=== PATIENT | female | born 1995 | race Caucasian/White ===

== ENCOUNTER → 2024-09-06 | Outpatient (CLI) | payer BC, SELFPAY ==
[2024-09-10 22:06] LABS: Chlamydia By Nucleic Acid AMP Negative (Negative); Gonococcus By Nucleic Acid AMP Negative (Negative)
[2024-09-11 12:08] LABS: HPV APTIMA, High Risk Negative (Negative)
== END | disposition home or self-care (01) ==
LOC: LABSPEC 14:20
PROVIDERS: Referring Provider Advanced Practice Midwife; Visit Provider Advanced Practice Midwife
DX: O09.90 Supervision of high risk pregnancy, unspecified, unspecified trimester (principal); Z12.4 Encounter for screening for malignant neoplasm of cervix; Z3A.00 Weeks of gestation of pregnancy not specified
CPT/HCPCS: 87086; 87088; 87491; 87591; 87624; 88175; G0145

== ENCOUNTER → 2024-09-12 | Outpatient (CLI) | payer BC, SELFPAY | END | disposition home or self-care (01) | LOC: LABSPEC 11:01 | PROVIDERS: Referring Provider Nurse Practitioner Women's Health; Visit Provider Nurse Practitioner Women's Health | DX: R39.89 Other symptoms and signs involving the genitourinary system (principal) | CPT/HCPCS: 87086 ==

== ENCOUNTER → 2024-09-28 | Outpatient (CLI) | payer BC, SELFPAY ==
[2024-09-28 16:28] LABS: Absolute Lymphocyte Count 2.11 X10^3/uL (0.83-4.51); Absolute Neutrophil Count 6.3 X10^3/uL (2.0-7.7); Basophil# 0.06 X10^3/uL; Basophil% 0.6 % (0-1); Eosinophil# 0.45 X10^3/uL; Eosinophils% 4.7 % (0-5); Hemoglobin 11.6 g/dL (12.0-15.0); Lymphocyte # 2.11 X10^3/ul (0.83-4.51); Lymphocyte % 21.9 % (19-41); Mean Corp Hgb Conc 34.1 g/dL (32-36); Mean Corpuscular Hgb 30.9 pg (27.0-32.0); Mean Corpuscular Volume 90.4 fL (81-99); Mean Platelet Vol. 9.3 fl (6.2-12.0); Monocyte# 0.64 X10^3/uL; Monocyte% 6.7 % (0-10); NRBC Flagged by Analyzer 0 % (0-5); Neutrophil # 6.33 X10^3/uL (2.7-7.7); Neutrophil % 65.8 % (47-70); Platelet Count 282 K/mm3 (150-450); RBC Distribution Width CV 12.3 % (11.6-14.6); RBC Distribution Width SD 40.3 fl (35.1-43.9); Red Blood Count 3.76 M/mm3 (4.2-5.4); White Blood Count 9.6 K/mm3 (4.4-11.0)
[2024-09-28 17:12] LABS: HIV Nonreactive (Nonreactive); Hepatitis B Surface Antigen Nonreactive (Nonreactive); Hepatitis C Antibody Nonreactive (Nonreactive); Rubella IgG REAC (Nonreactive); Syphilis Antibodies Nonreactive (Nonreactive)
== END | disposition home or self-care (01) ==
PROVIDERS: Advanced Practice Midwife; Referring Provider Obstetrics & Gynecology; Visit Provider Obstetrics & Gynecology
DX: O09.90 Supervision of high risk pregnancy, unspecified, unspecified trimester (principal); Z3A.00 Weeks of gestation of pregnancy not specified
CPT/HCPCS: 36415; 85025; 86703; 86762; 86780; 86803; 86850; 86900; 86901; 87340

== ENCOUNTER → 2024-10-02 | Outpatient (CLI) | payer BC, SELFPAY | END | disposition home or self-care (01) | LOC: BWCLAB 08:13 | PROVIDERS: Referring Provider Advanced Practice Midwife; Visit Provider Advanced Practice Midwife | DX: Z34.81 Encounter for supervision of other normal pregnancy, first trimester (principal) | CPT/HCPCS: 36415 ==

== ENCOUNTER → 2025-01-15 | Outpatient (CLI) | payer BC, SELFPAY ==
[2025-01-15 09:27] LABS: Hematocrit 28.6 % (37-47); Hemoglobin 9.7 g/dL (12.0-15.0); Immature Granulocytes Count 0.050 X10^3/uL (0.0-0.0); Mean Corp Hgb Conc 33.9 g/dL (32-36); Mean Corpuscular Volume 89.4 fL (81-99); Mean Platelet Vol. 9.0 fl (6.2-12.0); NRBC Flagged by Analyzer 0 % (0-5); Platelet Count 259 K/mm3 (150-450); RBC Distribution Width CV 13.0 % (11.6-14.6); RBC Distribution Width SD 42.1 fl (35.1-43.9); Red Blood Count 3.20 M/mm3 (4.2-5.4); White Blood Count 9.4 K/mm3 (4.4-11.0)
[2025-01-15 10:11] LABS: Glucose Challenge Gest 1H 50g 102 mg/dL (70-140); HIV Nonreactive (Nonreactive); Syphilis Antibodies Nonreactive (Nonreactive)
== END | disposition home or self-care (01) ==
LOC: BWCLAB 08:31
PROVIDERS: Referring Provider Nurse Practitioner Women's Health; Visit Provider Nurse Practitioner Women's Health
DX: O09.91 Supervision of high risk pregnancy, unspecified, first trimester (principal); Z3A.00 Weeks of gestation of pregnancy not specified; Z13.1 Encounter for screening for diabetes mellitus
CPT/HCPCS: 36415; 82950; 85025; 86703; 86780

== ENCOUNTER → 2025-03-18 | Outpatient (CLI) | payer BC, SELFPAY ==
--- NOTE | 2025-03-18 12:53 | US_ITS ---
PROCEDURE: OB LIMITED WITH BIOMETRICS 03/18/2025 REASON FOR EXAM: HISTORY OF IUGR TECHNIQUE: Procedure Code: USOBGROWTH Modality: US Procedure: OB LIMITED WITH BIOMETRICS COMPARISON: None FINDINGS LMP: July 09, 2024. Number: 1 Position: Vertex Placental Position: Anterior and not low-lying Placental Abnormalities: No evidence of previa. DIMENSIONS: Biparietal Diameter: 8.8 cm: 35 weeks and 3 days: 44 percentile/ Head Circumference: 32 cm: 36 weeks and 0 days: 20 percentile/ Abdominal Circumference: 32.9 cm: 36 weeks and 6 days: 81 percentile/ Femur Length: 6.8 cm: 34 weeks and 6 days: 18 percentile/ ESTIMATED WEIGHT: 2868 g plus/-430 g ESTIMATED WEIGHT PERCENTILE (24+ weeks): 55.9 ESTIMATED GESTATIONAL AGE: Baseline: 36 weeks and 0 days By Ultrasound: 36 weeks and 1 day ESTIMATED DATE OF DELIVERY: Baseline: April 15, 2025 By Ultrasound: April 14, 2025 BIOPHYSICAL ASSESSMENT: Amniotic Fluid Volume: 2.8 cm Amniotic Fluid Index: 7.5 cm (8-24 cm normal range) Cardiac Motion: 157 beats per minute (average) Trunk and Limb Motion: Present. US/OB Limited With Biometrics IMPRESSION: Single live intrauterine gestation with a mean gestational age of 36 weeks and 1 day. Reading Location: [id number]
== END | disposition home or self-care (01) ==
LOC: US 12:51
PROVIDERS: PCP Family Medicine; Referring Provider Obstetrics & Gynecology; Visit Provider Obstetrics & Gynecology
DX: O99.013 Anemia complicating pregnancy, third trimester (principal); Z87.59 Personal history of other complications of pregnancy, childbirth and the puerperium; O34.219 Maternal care for unspecified type scar from previous cesarean delivery; O09.93 Supervision of high risk pregnancy, unspecified, third trimester; Z3A.00 Weeks of gestation of pregnancy not specified
CPT/HCPCS: 76816

== ENCOUNTER → 2025-03-21 | Outpatient (CLI) | payer BC, SELFPAY | END | disposition home or self-care (01) | LOC: LABSPEC 11:32 | PROVIDERS: PCP Family Medicine; Visit Provider Obstetrics & Gynecology | DX: O09.93 Supervision of high risk pregnancy, unspecified, third trimester (principal); Z3A.36 36 weeks gestation of pregnancy | CPT/HCPCS: 87081 ==

== ENCOUNTER → 2025-04-02 | Outpatient (CLI) | payer BC, SELFPAY ==
--- NOTE | 2025-04-02 10:03 | US_ITS ---
PROCEDURE: OB LIMITED (NO BIOMETRICS) 04/02/2025 REASON FOR EXAM: MARGOTH CHECK TECHNIQUE: Procedure Code: USOBL Modality: US Procedure: OB LIMITED (NO BIOMETRICS) FINDINGS Cephalic position with cardiac activity of 147 bpm. Maximum vertical pocket of 4.6 cm and MARGOTH of 7.7 cm. Placenta is not low lying with grade 3 US/OB Limited (No Biometrics) IMPRESSION: MARGOTH of 7.7 cm. Reading Location: [id number]
== END | disposition home or self-care (01) ==
LOC: US 10:03
PROVIDERS: PCP Family Medicine; Referring Provider Advanced Practice Midwife; Visit Provider Advanced Practice Midwife
DX: O28.8 Other abnormal findings on antenatal screening of mother (principal); Z3A.00 Weeks of gestation of pregnancy not specified
CPT/HCPCS: 76815

== ENCOUNTER 2025-04-08 11:43 | Inpatient (IN) | payer BC, SELFPAY ==
[2025-04-08] VITALS (14 sets, daily range): BP systolic 98–137; BP diastolic 56–81; PULSE 88–115; RESP 16–18; TEMP 36.4–37.3; O2SAT 95–98; BMI 33.8
[2025-04-08 12:39] LABS: Hematocrit 28.9 % (37-47); Hemoglobin 10.1 g/dL (12.0-15.0); Immature Granulocytes Count 0.070 X10^3/uL (0.0-0.0); Mean Corp Hgb Conc 34.9 g/dL (32-36); Mean Corpuscular Volume 88.7 fL (81-99); Mean Platelet Vol. 9.3 fl (6.2-12.0); NRBC Flagged by Analyzer 0 % (0-5); Platelet Count 237 K/mm3 (150-450); RBC Distribution Width CV 13.7 % (11.6-14.6); RBC Distribution Width SD 44.5 fl (35.1-43.9); Red Blood Count 3.26 M/mm3 (4.2-5.4); White Blood Count 10.1 K/mm3 (4.4-11.0)
[2025-04-08 13:15] LABS: Creatinine, Urine (random) 30.50 mg/dL (28.00-217.00); Protein, Urine (Random) < 6.0 mg/dL (0.0-12.0); Protein:Creat Ratio UNABLE TO CALCULATE mg/g CRE (0-200)
[2025-04-08 13:29] LABS: AST(SGOT) 18 U/L (<=31); Alanine Aminotransfer ALT/SGPT 9 U/L (<=34); Estimated Creatinine Clearance 162.35 ml/min (50-250); Syphilis Antibodies Nonreactive (Nonreactive); Uric Acid 4.6 mg/dL (2.6-6.0)
[2025-04-08] MEDS: Lactated Ringers 1,000 ML 999 ML IV (14:48)
[2025-04-08] MEDS: Lactated Ringers 1,000 ML 150 ML IV (15:52)
[2025-04-08] MEDS: Cefazolin 1 GM/5 ML Vial 2 GM IV (16:41)
[2025-04-08] MEDS: 0.9% Normal Saline (1000mL) 350 ML IV (17:29)
--- NOTE | 2025-04-08 17:38 | HP.PCM_ITS ---
History and Physical Date of Admission: 04/08/25 ital Signs 01/28/2509:53 04/02/2509:35 04/08/2510:38 04/08/2510:41 Height 5 ft 5 ft 5 ft Weight: 173 lb 1 oz BMI 33.7 BP 143/94 H 138/92 H Intake Visit Reasons: 39wk ob Neonatal Icu Coordinator Required: No Is patient in pain?: No Allergies No Known Allergies Allergy (Verified 04/08/25 12:04) Medications ?Medication ?Instructions ?Recorded ?Confirmed ?Type citalopram 20 mg tablet 20 mg PO QDAY pregn 08/24/24 04/08/25 Hi story docosahexaenoic acid 200 mg 200 mg PO DAILY 08/24/2404/08 History capsule ( DHA) ferrous sulfate 325 mg (65 mg 325 mg PO DAILY anemia 04/08/25 04/08/25 History iron) tablet (Feosol) Last Menstrual Period: 07/09/24 Zika: Zika virus screening: Negative : No PFSH PFSH Medical History (Updated 04/08/25 @ 15:[address] Rocio Contreras MD) Anxiety History of prior with IUGR Surgical History S/P tonsillectomy H/O section Family History Grandmother Breast cancer, Onset Age: 50 Social History adopted: No household members: spouse and children number of children: 1 current occupational status: employed current occupation: [employer] current occupational exposures/hazards: No pets and animals: Yes (Not managing litterbox) pets and animals: cat(s) and dog(s) history of recent travel: No sexually active: Yes Smoking Status: Never smoker second hand exposure: No alcohol intake: current alcohol intake frequency: holidays/special occasions only details: Not while substance use type: does not use well-balanced diet: daily or most days caffeine: Yes Type: coffee eating out: 1-3 times/week during the past year weight has: remained stable what type of physical activity do you participate in: walking frequency: 3-4 times per week duration: 15-30 minutes/day pako/mormon: None seatbelt use: always do you feel safe at home: Yes additional social history: : Chandra IntraStage History 2 Elective abortions Hx Para 1 Spontaneous abortions Hx # Term Pregnancies 1 Ectopic pregnancies Hx # Pregnancies Multiple births # of living children 1 Past Pregnancies Del. Date Name GA/Weeks Outcome Route Bth Weight Infant Gen Labor Lgth Anesthesia Del Locatn Provider FOB 08/28/21 Ellen 39 live - full term 5lbs 12oz Female epidural [facility] in [facility] Delivery Date: 08/28/21 Last Updated by: Angelica Esposito, RN Measuring small most of , brain cyst - resolved, csec d/t decals from knotted cord HPI 39wk ob Details: DAVID BUENROSTRO is a 29 year old who presents for routine OB visit. she has elevated bps today and she is having lower abdominal pain intermittently. OB Visit NASRIN Calculator Estimated Delivery Date Method Current WG Current Estimate 04/15/25 LMP (Certain) 39w 0d Expected Delivery Route/Plan TOLAC by 40-41 patient counseled regarding risks/benefits of trial of labor versus repeat . ACOG/uptodate education given to patient. [] % likelihood of success per calculator TOLAC consent form signed: [] Specific Issue/Plans Covid status: [] Flu vaccine: declined Tdap vaccine: given Rhogam: NA LARC form signed: yes movement and labor precautions reviewed. Problem list reviewed and updated with the most current plan of care details and appropriate orders placed. Relevant counseling for the gestational age provided. Continue routine care and follow up unless otherwise noted in visit notes/problem list details Initial Weight: 147 lb Date -?-?-?-?-?-?-?-?-?-?-?-?- EGA Weight BP Urine Prot -?-?-?-?-?-?-?-?-?-?-?-?- Glucose FHR FuHt Pres Dilation -?-?-?-?-?-?-?-?-?-?-?-?- Effaced St Visit Note 09/06/24-?-?-?-?-?-?-?-?-?-?-?-?- 8w 3d 147 lb 4 oz(+4 oz) 129/85 -?-?-?-?-?-?-?-?-?-?-?-?- 169 -?-?-?-?-?-?-?-?-?-?-?-?- KW- CRL cons with dates. Accepts NIPT. had c/s for decels. 09/12/24-?-?-?-?-?-?-?-?-?-?-?-?- 9w 2d 146 lb 2 oz(-14 oz) 134/89 Negative -?-?-?-?-?-?-?-?-?-?-?-?- Negative 171 -?-?-?-?-?-?-?-?-?-?-?-?- -work in for dysuria, bladder pain. Hx UTI. Br US confirm live IUP. No bleeding. UA negative. Will send culture. Consult JV and macrobid and pyridium sent due to significant sx. 09/28/24-?-?-?-?-?-?-?-?-?-?-?-?- 11w 4d 148 lb(+16 oz) 116/76 Negative -?-?-?-?-?-?-?-?-?-?-?-?- Negative 150 -?-?-?-?-?-?-?-?-?-?-?-?- SM- no vb crmaping noStreamSpec labs today 10/25/24-?-?-?-?-?-?-?--?-?-?-?-?- 15w 3d 150 lb 8 oz(+3 lb 8 oz) 127/84 Negative -?-?-?-?-?-?-?-?-?-?-?-?- Negative 145 -?-?-?-?-?-?-?-?-?-?-?-?- Sm- no vb lof cramping 11/21/24-?-?-?-?-?-?-?-?-?-?-?-?- 19w 2d 152 lb 8 oz(+5 lb 8 oz) 118/79 Negative -?-?-?-?-?-?-?-?-?-?-?-?- Negative 150 -?-?-?-?-?-?-?-?-?-?-?-?- JV_ CRUSHER FOREMAN explained on ultrasound. no other complaints today. feeling lots of movement. 12/17/24-?-?-?-?-?-?-?-?-?-?-?-?- 23w 0d 156 lb 7 oz(+9 lb 7 oz) 119/79 Negative -?-?-?-?-?-?-?-?-?-?-?-?- Negative 155 23 -?-?-?-?-?-?-?-?-?-?-?-?- KW- no vb/lof/ctx. good fm. glucose discussed. 01/15/25-?-?-?-?-?-?-?-?-?-?-?-?- 27w 1d 161 lb 4 oz(+14 lb 4 oz) 114/70 Negative -?-?-?-?-?-?-?-?-?-?-?-?- Negative 152 27 -?-?-?-?-?-?-?-?-?-?-?-?- MH-No VB, lof. Good FM. 28 wk labs pending. [facility] 01/28/25-?-?-?-?-?-?-?-?-?-?-?-?- 29w 0d 163 lb 7 oz(+16 lb 7 oz) 116/80 Negative -?-?-?-?-?-?-?-?-?-?-?-?- Negative 141 29 -?-?-?-?-?-?-?-?-?-?-?-?- MH-No VB, LOF. Good FM. tdap 02/12/25-?-?-?-?-?-?-?-?-?-?-?-?- 31w 1d 166 lb 6 oz(+19 lb 6 oz) 123/78 Negative -?-?-?-?-?-?-?-?-?-?-?-?- Negative 145 32 -?-?-?-?-?-?-?-?-?-?-?-?- Sm- n ovb lof good fm n oregular ctx 02/27/25-?-?-?-?-?-?-?-?-?-?-?-?- 33w 2d 169 lb 6 oz(+22 lb 6 oz) 127/88 Negative -?-?-?-?-?-?-?-?-?-?-?-?- Negative 134 34 -?-?-?-?-?-?-?-?-?-?-?-?- JV- planning 36 week growth scan for h/o IUGR. sent home with tolac consent. no lof, vaginal bleeding, or dec fm. 03/15/25-?--?-?-?-?-?-?-?-?-?-?-?- 35w 4d 169 lb 5 oz(+22 lb 5 oz) 132/80 Negative -?-?-?-?-?-?-?-?-?-?-?-?- Negative 135 35 -?-?-?-?--?-?-?-?-?-?-?-?- SM- no vb lof good fm no regular ctx some headaches normal bp no visual changes 03/21/25-?-?-?-?-?-?-?-?-?-?-?-?- 36w 3d 170 lb 3 oz(+23 lb 3 oz) 136/88 Negative -?-?-?-?-?-?-?-?-?-?-?-?- Negative 145 36 Cephalic 1-?-?-?-?-?-?-?-?-?- ?-?-?- 30 -3 JV- c/o vomiting at night . recommend pepcid. GBS collected ultrasound shows good growth but borderline low fluid. will recheck next week. 03/25/25-?-?-?-?-?-?-?-?-?-?-?-?- 37w 0d 171 lb 8 oz(+24 lb 8 oz) 126/88 Negative -?-?-?-?-?-?-?-?-?-?-?-?- Negative 144 37 Cephalic 1-?-?-?-?-?-?-?-?-?- ?-?-?- 30 -3 KV- Good FM. No regular c tx, LOF, or VB. MARGOTH today 11.1cm. 04/02/25-?-?-?-?-?-?-?-?-?-?-?-?- 38w 1d 173 lb 7 oz(+26 lb 7 oz) 132/85 Negative -?-?-?-?-?-?-?-?-?-?-?-?- Negative 135 36 3-?-?-?-?-?-?-?-?-?- ?-?-?- 30 -3 KW- no vb/lof/ctx. good tae blancas has formal US today after appt. 04/08/25-?-?-?-?-?-?-?-?-?-?-?-?- 39w 0d 173 lb 1 oz(+26 lb 1 oz) 143/98772/92 Ne gative -?-?-?-?-?-?-?-?-?-?-?-?- Negative -?-?-?-?-?-?-?-?-?-?-?-?- ROS Const Reports system reviewed and no additional complaints, except as documented Card Reports system reviewed and no additional complaints, except as documented Resp Reports system reviewed and no additional complaints, except as documented GI Reports system reviewed and no additional complaints, except as documented, Reports nausea Reports system reviewed and no additional complaints, except as documented Musc Reports system reviewed and no additional complaints, except as documented all other systems reviewed and negative Exam Const General: cooperative, healthy appearing, comfortable [facility] Head: normal to inspection Nose: external nose normal Face and sinus: normal facial exam Neck Neck: normal visual inspection, full ROM, no lymphadenopathy Thyroid: thyroid normal Chest Chest palpation & inspection: normal inspection of the chest Resp Effort & Inspection: normal respiratory effort GI Inspection: normal to inspection Palpation: soft, other (gravid uterus) Other: vertex and appropriate size for gestational age Extrem General: pedal edema ACOG First Trimester First Trimester: Desire for , Alcohol, Tobacco Cessation, Illicit/Recreational Drug/Substance Use, Intimate Partner Violence, Barriers to care, Anticipated Course of Care, Use of Any medications, Sexual activity, Exercise, Dental Care, Sauna/Hot tub use, Seat Belt use, Childbirth c lasses/Hospital facilities, Travel, Indications for Ultrasound and Screening for Aneuploidy; Discussed Unstable Housing, Discussed Communication Barriers, Discussed Environmental/Work Hazards, Discussed Toxoplasmosis Precations and Discussed Second Trimester Second Trimester: Signs and Symptoms of Labor, Selecting a care provider, Reproductive Life Planning & Contreception, Care Planning, Depression/Anxiety and Intimate Partner Violence; Discussed Tobacco Cessation Third Trimester Third Trimester: Pain Management Plans, Labor support person(s), Immediate Larc, Signs and Symptoms of Preeclampsia, Feeding No , [place] Education and Family Medical Leave or Disability Forms Results POC Urinalysis 2 Dip (Clinic) Office Urine Glucose Negative Last Edit by Cristy Rodriguez on 04/08/25 10:57 Office Urine Protein Negative Last Edit by Cristy Rodriguez on 04/08/25 10:57 Coding Level of Care Code OB Routine Diagnoses Amniotic fluid index borderline low O28.8 Anemia affecting in third trimester O99.013 Trimester: third trimester History of prior with IUGR Z87.59 History of delivery, currently O34.219 Supervision of high risk in third trimester O09.93 Trimester: third trimester 39 weeks gestation of Z3A.39 Weeks of gestation: 39 weeks Anxiety F41.9 Abdominal pain during in third trimester O26.893; R10.9 Assessment and Plan Assessment and Plan (1) Amniotic fluid index borderline low: Status: Acute Comment: 7.7 on 04/02. repeat margoth next week (2) Anemia affecting : Status: Acute Qualifiers: Trimester: third trimester Qualified Code(s): O99.013 - Anemia complicating , third trimester Comment: anemia, add Fe, recheck CBC and Fe studies in 4 weeks (3) History of prior with IUGR : Status: Acute Comment: growth US 36 weeks (4) History of delivery, currently : Status: Acute Comment: x1, plan on by 40-41 weeks. C/S 04/22 SM. (5) Supervision of high-risk : Status: Acute Qualifiers: Trimester: third trimester Qualified Code(s): O09.93 - Supervision of high risk , unspecified, third trimester Comment: PRR, , NASRIN 04/15/25, girl Rita PC: Ellen, : Chandra (6) : Status: Acute Qualifiers: Weeks of gestation: 39 weeks Qualified Code(s): Z3A.39 - 39 weeks gestation of Comment: neg GBS. Discussed genetic/carrier testing-NIPT low risk, gender female. afp declined (7) Anxiety: Status: Acute Comment: On citalopram (8) Abdominal pain during in third trimester: Status: Acute Comment: recommend proceeding with repeat Orders: Orders POC Urinalysis 2 Dip (Clinic) Today After discussing the patient's diagnosis and treatment plan options, patient wishes to proceed with surgical management. I have discussed with the patient the risks, benefits, and alternatives of the procedure which include but are not limited to risks of anesthesia, bleeding, infection, possible damage to bowel, bladder, or surrounding vasculature which could lead to additional surgery to evaluate any complications. Patient agrees to procedure and wishes to proceed. ACOG/uptodate references given for additional information regarding procedure. 04/08/25 1207 <Electronically signed by Rocio Contreras MD>
--- NOTE | 2025-04-08 17:41 | OP.PCM_ITS ---
Assessment & Plan (1) Abdominal pain during in third trimester: COMMENT: recommend proceeding with repeat (2) Amniotic fluid index borderline low: COMMENT: 7.7 on 04/02. repeat gilles next week (3) Anemia affecting : QUALIFIERS: Trimester: third trimester Qualified Code(s): O99.013 - Anemia complicating , third trimester COMMENT: anemia, add Fe, recheck CBC and Fe studies in 4 weeks (4) History of prior with IUGR : COMMENT: growth US 36 weeks (5) History of delivery, currently : COMMENT: x1, plan on by 40-41 weeks. C/S 04/22 SM. (6) Supervision of high-risk : QUALIFIERS: Trimester: third trimester Qualified Code(s): O09.93 - Supervision of high risk , unspecified, third trimester COMMENT: PRR, , NASRIN 04/15/25, girl Rita PC: Ellen, : Chandra (7) : QUALIFIERS: Weeks of gestation: 39 weeks Qualified Code(s): Z3A.39 - 39 weeks gestation of COMMENT: neg GBS. Discussed genetic/carrier testing-NIPT low risk, gender female. afp declined (8) Anxiety: COMMENT: On citalopram (9) delivery delivered: Maternal Data Information NASRIN Calculator Estimated Delivery Date Method Current WG Current Estimate 04/15/25 LMP (Certain) 39w 0d Final NASRIN Source: LMP Operative Report (OB) Procedure Details Date of Procedure: 04/08/25 Procedure Start Time: 17:01 Pre-Operative Diagnosis: Repeat Elective Post-Operative Diagnosis: Same as Pre-operative diagnosis Classification: Scheduled Type of Anesthesia: Spinal Special Medications: none Antibiotic Given: Ancef 2 grams IV x1 Drain: Pyle to straight drain Estimated Blood Loss: 600 Fluids Replaced: crystalloid Findings Description of surgery: Spinal anesthesia was placed without difficulty. Pyle catheter was placed. The patient was placed in the dorsal supine position with leftward tilt. Patient was prepped and draped in the normal sterile fashion. Pfannenstiel skin incision was made with the scalpel and carried through to the underlying layer of fascia with the scalpel. Fascia was nicked in the midline and the incision extended laterally. The rectus bellies were dissected off superiorly and inferiorly with out complication both sharply and bluntly. The peritoneum was entered digitally. The incision was stretched and a low transverse uterine incision was made with the scalpel. The infant's head was delivered atraumatically followed by the anterior and posterior shoulders without complication the rest of the infant delivered. The cord was clamped and cut and the infant was handed off to awaiting nurse. The placenta was delivered spontaneously immediately following and was noted to be intact and have a three- vessel cord. The uterus was exteriorized cleared of all clots and debris, and the incision was closed in a double layer closure using #1 Monocryl. The ovaries and fallopian tubes were noted to be within normal limits. The uterus was returned to the maternal abdomen and gutters were cleared of all clots and debris. The peritoneum was closed with 3-0 Monocryl in a running fashion. Gloves were changed prior to fascial closure. Fascia was closed with 0 PDS in a running fashion. Subcutaneous tissue was copiously irrigated and the skin was closed with 3-0 Monocryl in a subcuticular fashion. Mepilex dressing was applied without complication. Patient was taken to recovery in stable condition. It was discussed with the patient that based on the clinical information obtained during this encounter, combined with her history, at this time I would recommend vaginal or cesareans for future deliveries if further pregnancies are desired. Surgical findings: vertex infant minimal scar tissue Presentation: Vertex Amniotic Membrane Rupture Type: Artificial Amniotic Fluid Description: Clear Specimen collected: Yes Description of specimen(s) removed: placenta and baby Cord Vessel Description: 3 Vessels Delayed Cord Clamping: Yes Cable Stretcher And Tester digital learning platforms manager: Yes Bus Transportation Manager: Polina Jeter Tasks completed by hearing aid assistant: Opening & closing, Retracting and Other (assisting in delivery of the infant) Additional janitorial assistant?: No Complications Complications: No Admit VTE Documentation VTE Present on Admission: No VTE Mechan Device Prophylaxis: SCD's Procedures Urinary/Genital [id number]: [id number] Delivery [facility]
--- NOTE | 2025-04-08 17:42 | PCM.POST.ANE ---
Anesthesia: Postop Eval I Current Vital Signs Temperature: 98 F Pulse Rate: 99 Blood Pressure: 133/58 Respiratory Rate: 16 Pulse Ox: 97 Oxygen Delivery Method: Room Air Assessment Airway patent: Yes Spontaneous unlabored respirations: Yes Mental status: Awake and Calm nausea: No Vomiting: No Anesthesia Complication: No Fluid Hydration Crystalloid volume administer (ml): 950 Total IV fluid infused: 950 Progress Note Anesthesia document: Postop Eval 1 completed: Yes
--- NOTE | 2025-04-08 17:43 | DCINST_ITS ---
Discharge Instructions DC O2, CPAP, BIPAP needs Home O2 Discharge instructions: No Dressing / Incision Discharge Activity: May Not Drive (for 2 weeks or while taking narcotic pain medications.), May Shower and May Take a Tub Bath (in 7 days) May shower in (days): 0 May resume sexual activity in: 4-6 weeks Weight Bearing Status: Full weight bearing Lifting Restrictions: 20 pounds Dressing / Incision Call your doctor if your incision/area has: Continuous Slow Oozing, Sudden Increased Bleeding, Increased Pain/ Swelling, Increased Redness and Foul Smelling Discharge Call your doctor if you observe: Fever of 101 or Higher and Using more than 1 pad per hour (for 2 hours) Suture Line Care: Avoid Pulling/Pushing and Avoid Pinching/Bending Cleanse incision/area with: Soap & Water and Keep Dressing Clean & Dry Follow Up Care Please Follow Up With: Rocio Contreras MD When: Call [phone] to make an appointment for an incision check in 1-2 weeks. Test Results: Test results from this visit will be discussed in further detail at your follow- up appointment, if applicable. Discharge Plan Admission Admit Date/Time: 04/08/25 11:43 Attending Provider: Rocio Cnotreras Primary Care Provider: Shantal Corado Discharge Orders/Prescriptions Prescriptions: No Action citalopram 20 mg tablet 20 mg PO QDAY DHA 200 mg capsule 200 mg PO DAILY ferrous sulfate [Feosol] 325 mg (65 mg iron) tablet 325 mg PO DAILY Referrals / Follow Up: Shantal Corado MD [Primary Care Provider, Medical]
--- NOTE | 2025-04-08 17:47 | POSTOPAN2_ITS ---
Anesthesia Postop Eval I Sum Postop Eval Completion status Anesthesia document: Postop Eval 1 completed: Yes Anesthesia Postop Eval I Summary Anesthesia Postop Eval I Summary: Anesthesia Postop Eval I: Assessment Summary Airway patent Yes 04/08/25 17:43 SUPERVISOR COMPUTER OPERATIONS.CSIR Spontaneous unlabored Yes 04/08/25 17:43 SUPERVISOR COMPUTER OPERATIONS.CSIR respirations Mental status Awake,Calm 04/08/25 17:43 SUPERVISOR COMPUTER OPERATIONS.CSIR nausea No 04/08/25 17:43 SUPERVISOR COMPUTER OPERATIONS.CSIR Vomiting No 04/08/25 17:43 SUPERVISOR COMPUTER OPERATIONS.CSIR Anesthesia Postop Eval I: Fluid Summary Crystalloid volume administer 950 04/08/25 17:43 SUPERVISOR COMPUTER OPERATIONS.CSIR (ml) Colloids volume administered ( ml) Blood Product volume administered (ml) Total IV fluid infused 950 04/08/25 17:43 SUPERVISOR COMPUTER OPERATIONS.CSIR Anesthesia Postop Eval I: Summary Notes Anesthesia Complication No 04/08/25 17:43 SUPERVISOR COMPUTER OPERATIONS.CSIR Anesthesia Complication Comment: Post-operative progress note Anesthesia: Postop Eval II Evaluation Mental status: Awake and Calm Pain Level: 0 nausea: No Vomiting: No Complications Anesthesia Complication: No
--- NOTE | 2025-04-08 17:47 | PCM.POSTANE2 ---
Anesthesia Postop Eval I Sum Postop Eval Completion status Anesthesia document: Postop Eval 1 completed: Yes Anesthesia Postop Eval I Summary Anesthesia Postop Eval I Summary: Anesthesia Postop Eval I: Assessment Summary Airway patent Yes 04/08/25 17:43 WIND ENERGY ENGINEER.CSIR Spontaneous unlabored Yes 04/08/25 17:43 WIND ENERGY ENGINEER.CSIR respirations Mental status Awake,Calm 04/08/25 17:43 WIND ENERGY ENGINEER.CSIR nausea No 04/08/25 17:43 WIND ENERGY ENGINEER.CSIR Vomiting No 04/08/25 17:43 WIND ENERGY ENGINEER.CSIR Anesthesia Postop Eval I: Fluid Summary Crystalloid volume administer 950 04/08/25 17:43 WIND ENERGY ENGINEER.CSIR (ml) Colloids volume administered ( ml) Blood Product volume administered (ml) Total IV fluid infused 950 04/08/25 17:43 WIND ENERGY ENGINEER.CSIR Anesthesia Postop Eval I: Summary Notes Anesthesia Complication No 04/08/25 17:43 WIND ENERGY ENGINEER.CSIR Anesthesia Complication Comment: Post-operative progress note Anesthesia: Postop Eval II Evaluation Mental status: Awake and Calm Pain Level: 0 nausea: No Vomiting: No Complications Anesthesia Complication: No
[2025-04-08] MEDS: Ketorolac 30 MG/ML Syringe IV (18:23)
[2025-04-08] MEDS: Oxytocin 15 Units/NS 250ml 15 UNITS/250 ML IV.SOLN 83 UNITS IV (18:23)
[2025-04-09] VITALS (7 sets, daily range): BP systolic 106–122; BP diastolic 58–75; PULSE 80–92; RESP 16–18; TEMP 36.6–36.9; O2SAT 96–97
[2025-04-09] MEDS: Ketorolac 30 MG/ML Syringe IV ×3 (00:04→12:12)
[2025-04-09] MEDS: 0.9% Saline Lock 10 ML Syringe IV ×3 (00:05→12:12)
[2025-04-09 06:32] LABS: Hematocrit 25.7 % (37-47); Hemoglobin 8.6 g/dL (12.0-15.0); Mean Corp Hgb Conc 33.5 g/dL (32-36); Mean Corpuscular Volume 90.5 fL (81-99); Mean Platelet Vol. 9.1 fl (6.2-12.0); Platelet Count 186 K/mm3 (150-450); RBC Distribution Width CV 13.8 % (11.6-14.6); RBC Distribution Width SD 45.5 fl (35.1-43.9); Red Blood Count 2.84 M/mm3 (4.2-5.4); White Blood Count 13.2 K/mm3 (4.4-11.0)
[2025-04-09] MEDS: Senna/Docusate Sodium 1 Tablet PO (10:29)
--- NOTE | 2025-04-09 11:07 | PCM.PN.OB ---
Subjective Subjective Patient doing well without complaints. Tolerating PO. Ambulating and voiding without difficulty. feeding well. Denies chest pain, shortness of breath, calf pain/swelling, fevers, chills, lightheadedness. Objective Data Objective Data Vital Signs: Vital Signs Temp Pulse Resp BP Pulse Ox O2 Del Method 98.3 F 82 16 114/75 97 Room Air 04/09/25 08:00 04/09/25 08:00 04/09/25 08:00 04/09/25 08:00 04/09/25 08:00 04/09/25 08:00 Oxygen Delivery Method Room Air Weight: 173 lb 6 oz Body Mass Index (BMI) 33.8 Intake & Output: Intake and Output for Last 24 Hours 04/07/25 04/08/25 04/09/25 23:59 23:59 23:59 Intake Total 2250.0 / 2250.0 Output Total 800 / 800 1600 / 1600 Balance 1450.0 / 1450.0 -1600 / -1600 Lab / Micro Data 04/09/25 06:17 04/08/25 12:25 Labs: Laboratory Results - last 24 hr 04/08/25 12:25: WBC 10.1, RBC 3.26 L, Hgb 10.1 L, Hct 28.9 L, MCV 88.7, MCH 31.0, MCHC 34.9, RDW Std Deviation 44.5 H, RDW Coeff of Miladys 13.7, Plt Count 237, MPV 9.3, Immature Gran % (Auto) 0.700, Neut % (Auto) 71.6 H, Lymph % (Auto) 16.6 L, [place] % (Auto) 7.2, Eos % (Auto) 3.4, Baso % (Auto) 0.5, Absolute Neuts (auto) 7.2, Absolute Lymphs (auto) 1.68, Nucleated RBC % 0, Creatinine 0.47 L, Estim Creat Clear Calc 162.35, Est GFR (MDRD) Non-Af 131, Uric Acid 4.6, AST 18, ALT 9, U Random Total Protein < 6.0, Urine Creatinine 30.50, Protein/Creatinin Ratio UNABLE TO CALCULATE, Syphilis Total Ab Nonreactive, Blood Type O POSITIVE, Antibody Screen NEGATIVE 04/09/25 06:17: WBC 13.2 H, RBC 2.84 L, Hgb 8.6 L, Hct 25.7 L, MCV 90.5, MCH 30.3, MCHC 33.5, RDW Std Deviation 45.5 H, RDW Coeff of Milad[place] 13.8, Plt Count 186, MPV 9.1 ROS Constitutional Constitutional: Reports systems reviewed and no addt'l complaints, except as documented Cardiovascular Cardiovascular: Reports systems reviewed and no addt'l complaints, except as documented Respiratory/Chest Respiratory/Chest: Reports systems reviewed and no addt'l complaints, except as documented Gastrointestinal Gastrointestinal: Reports systems reviewed and no addt'l complaints, except as documented Physical Exam Const alert, oriented x3 and no apparent distress HEENT Head and Scalp: atraumatic Resp normal respiratory effort GI soft to palpation and non-tender Inspection: incision intact, healing well and drainage (none) Bimanual Exam - Vag & Uterus: uterus non-tender Uterus Palpation: uterus fundus firm (below Umbilicus) Assessment & Plan (1) delivery delivered: COMMENT: RLTCS [facility] PLAN: Plan s/p LTCS PPD # 1 1. routine post care 2. breast feeding- support given 3. rh positive 4. rubella immune
--- NOTE | 2025-04-09 14:14 | CASEMGMT ---
Social Work Assessment Labor and Delivery Unit Patient Address: [address] [place] [address] Phone number: [phone] Date of Referral: 04/08/25 Time of Referral:? 1520 Referred By: Dr. Contreras Date of Intervention: ??04/09/25 Time of Intervention:? 1030 Reason for Referral:? on celexa for anxiety Sw completed chart review and acknowledges social work consult due to maternal mental health. Sw presented to bedside and introduced self to mother of baby, JOSEPH- Aspen and father of baby, SAMI- Chandra. Sw explained reason for sw involvement and completed psychosocial assessment. History obtained from: medical records, MOB and FOB Household composition: Currently residing in the home is SAMI RUIZ, their three year old daughter, Ellen. [place] baby to be included in residence when ready for discharge. Parents deny any problems with housing, stating their home is safe and secure. Patient's parent/guardian status:? JOSEPH states that she and SAMI have known each other for a long time, stating that they initially dated in high school, but then got back together in 2020. [place] baby is their second child together. No problems reported regarding domestic violence or intimate partner violence. ? Medical History: JOSEPH is 29 year old female who is 2, para 1- now 2 following labor and delivery of . JOSEPH received routine care during with [facility]. JOSEPH presented to hospital for repeat on 04/08/25 and delivered baby at 39 weeks gestation. Baby girl, named Rita Christopher, was born weighing ?6lbs 10oz and had apgars of 9 and 9 at one and five minutes of life, respectfully. JOSEPH is breast feeding and reports baby will be followed by Dr. Borges for pediatrics. Educational Status:? Both parents graduated from high school, MOB obtained her associates degree and FOB obtained his Bachelor's degree, no problems with reading, learning or comprehension. Financial Status: Both parents are gainfully employed outside of the home. FOB works for an [employer], and MOB works in [employer]. Infant Supplies:?All necessary baby supplies obtained, including: car seat, safe sleep space, clothes, diapers and wipes. ? Childcare/Caregiver(s):?MOB will be the primary caregiver to baby, along with FOB. When both parents are working they have arrangements made with a air drier. Transportation:?? Both parents have a drivers license and reliable means of transportation, no barriers. Programs/Agencies Involved: ?[facility] are not connected to any community resources that provide them with financial assistance as they are over income. ?? Children Services/Legal Issues:?No history of children services involvement, no issues or concerns warranting referral to be made at this time. ?? Behavioral Health Issues: ??Mental Health History:?FOB denies mental health history, MOB states that she has been diagnosed with anxiety and is prescribed Celexa to help her manage her symptoms. MOB reports that she is able to tell a difference with the medication. MOB reports that her anxiety is always managed, however she does feel more anxious at the beginning of her . MOB reports that once she gets passed the first trimester her anxiety dissipates and she feels much better. ? Substance Use History:?Parents deny any substance use prior to and during . ? Family History:?Parents deny family history of addiction or significant mental health history. ? Drug Screens: No drug screens observed while completing chart review. ?? Family/Social Stressors:? Parents deny any issues, stressors or concerns. Support Systems: MOB states that both sets of grandparents are their biggest supports outside of each other. Depression/Shaken Baby/Safe Sleeping:? Sw educated parents on signs and symptoms of baby blue and mood and anxiety disorders to be mindful of during this period. MOB states that following her first delivery she did not struggle with any symptoms. MOB states that she is aware of the terms and what symptoms to be on the lookout for. MOB states that she can tell a difference with the medication she is on to help manage her mental health symptoms (Celexa- prescribed by her PCP). MOB states that if she were to struggle with her mental health at all she would feel comfortable talking to her supports about what she was feeling. Sw expressed importance of safe sleep inside and outside of the bedroom. Sw educated MOB on always placing baby in bedside bassinet and not sleeping with baby in bed with her. Sw explained that baby's bassinet should be free of any blankets, pillows or stuffed animals. And baby should be sleeping in a onsie and a sleep sack/ swaddle sack for sleep. MOB expressed understanding. Sw discouraged sleeping with baby on a couch or in a reclining chair explaining that sleep accidents also happen in those areas as well. Sw educated MOB on shaken baby prevention. MOB expressed understanding. ASSESSMENT:? MOB and baby admitted following labor and delivery. MOB with mental health history of anxiety, she is currently prescribed medication to help her manage her symptoms. MOB educated on risks of making any adjustments to her medications during this period. MOB states that she feels really good following delivery, reports to feeling like herself, and denies feeling down, sad, anxious, depressed or tearful. MOB and FOB both present and engaging throughout conversation and completion of assessment. MOB observed sitting on bed and FOB sitting in reclining chair holding . FOB observed to be attentive and loving towards baby. MOB talkative and conversation flowed easily and naturally. Parents have lots of natural supports in place and all necessary baby supplies. PLAN:? No other services requested or indicated. MOB and baby to be discharged when medically ready. Parents were provided literature regarding: signs and symptoms of baby blues and mood and anxiety disorders, Help Me Grow, shaken baby prevention, ABCs of safe sleep and a list of county resources that are available for them should any needs present themselves. Agustin Frost, ASSISTANT CASINO SHIFT MANAGER, INFORMATION TECHNOLOGY ASSISTANT
== END 2025-04-09 18:45 | disposition home or self-care (01) | DRG 787 ==
PROVIDERS: Admitting Provider Obstetrics & Gynecology; PCP Family Medicine; Referring Provider Obstetrics & Gynecology; Visit Provider Obstetrics & Gynecology
DX: O34.211 Maternal care for low transverse scar from previous cesarean delivery (principal); O41.03X0 Oligohydramnios, third trimester, not applicable or unspecified; D64.9 Anemia, unspecified; F41.9 Anxiety disorder, unspecified; Z37.0 Single live birth; O99.02 Anemia complicating childbirth; Z3A.39 39 weeks gestation of pregnancy; O99.344 Other mental disorders complicating childbirth; Z87.59 Personal history of other complications of pregnancy, childbirth and the puerperium; O28.8 Other abnormal findings on antenatal screening of mother
CPT/HCPCS: 59025; 59050; 82565; 82570; 84156; 84450; 84460; 84550; 85025; 85027; 86780; 86850; 86900; 86901; 99221; A4216; G0378; J2405